=== PATIENT | female | born 1945 | race Caucasian/White ===

== ENCOUNTER 2017-10-23 18:44 | Emergency (ER) | payer MEDICARE, BC ==
[2017-10-23] MEDS ORDERED: Sodium Chloride 0.9% 10 ML Syringe FLUSH PRN (19:15)
[2017-10-23] MEDS ORDERED: Lactated Ringers 1,000 ML IV SCH (19:15)
[2017-10-23] MEDS ORDERED: Diltiazem 25 MG/5 ML SDV IVPUSH ONE (19:15)
--- NOTE | 2017-10-23 19:20 | EDM.PDOC ---
ED HPI GENERAL MEDICAL PROBLEM - General Chief Complaint: Cardiovascular Problem Stated Complaint: POSSIBLE AFIB Time Seen by Provider: 10/23/17 19:14 Source of Information: Reports: Patient, Family, RN Notes Reviewed History Limitations: Reports: No Limitations - History of Present Illness INITIAL COMMENTS - FREE TEXT/NARRATIVE: 72-year-old female presents to the emergency department with a complaint of palpitations, she has a known history of paroxysmal atrial fibrillation 2 he states last event was 2 years ago she was converted with Cardizem she continues to take that medication daily, she states she's had no issues over the last 2 years until today suddenly felt palpitations felt flushed decided reports the emergency department for further evaluation. She denies any chest pain or shortness of breath no nausea able speak in full sentences. Last meal was at 5 PM denies pain Pain Score (Numeric/FACES): 0 - Related Data Allergies Allergy/AdvReac Type Severity Reaction Status Date / Time Penicillins Allergy Hives Verified 10/23/17 19:01 Sulfa (Sulfonamide Allergy Swelling Verified 10/23/17 19:01 Antibiotics) Home Meds: Home Meds Cyclobenzaprine HCl 5 mg PO TID PRN 10/23/17 [History] Diltiazem HCl [Diltiazem ER] 120 mg PO DAILY 10/23/17 [History] Hydrocodone/Acetaminophen [Hydrocodon-Acetaminophn 10-325] 2 tab PO ASDIRECTED 10/23/17 [History] Lisinopril 2.5 mg PO DAILY 10/23/17 [History] Metoprolol Succinate 50 mg PO DAILY 10/23/17 [History] Pantoprazole [ProTONIX] 40 mg PO DAILY 10/23/17 [History] Pravastatin Sodium 10 mg PO BEDTIME 10/23/17 [History] Ranitidine HCl [Zantac] 150 mg PO DAILY 10/23/17 [History] metFORMIN HCl [Metformin HCl] 500 mg PO BID 10/23/17 [History] Past Medical History Cardiovascular History: Reports: Afib, High Cholesterol, Hypertension Endocrine/Metabolic History: Reports: Diabetes, Type II Social & Family History - Tobacco Use Smoking Status *Q: Never Smoker ED ROS GENERAL - Review of Systems Review Of Systems: See Below Constitutional: Reports: No Symptoms HEENT: Reports: No Symptoms Respiratory: Reports: No Symptoms Cardiovascular: Reports: Palpitations GI/Abdominal: Reports: No Symptoms : Reports: No Symptoms Musculoskeletal: Reports: No Symptoms Skin: Reports: No Symptoms Neurological: Reports: No Symptoms ED EXAM, GENERAL - Physical Exam Exam: See Below Free Text/Narrative:: General: Female, able speak in full sentences but anxious, alert and oriented x3 HEENT: head is atraumatic normocephalic, eyes pupils equal round reactive to light, sclera clear no conjunctivitis appreciated. Ears tympanic membranes clear and rdz landmarks and light reflex are present bilaterally canals are clear. Nose no septal deviation, nares are clear, no blood present. Mouth mucosa is moist and pink no erythema or exudate noted in soft palate, tongue is midline uvula is midline, dentition is intact. Neck: Supple no thyromegaly no tracheal deviation. Nodes: Cervical nodes subclavicular nodes nontender no palpable lymphadenopathy noted. Lungs: clear to auscultation bilaterally with symmetrical respirations, no adventitious noise appreciated. CV: Tachycardic rate and rhythm S1 and S2 . Abdomen: Soft, nontender, no palpable masses or organomegaly appreciated, no distention no guarding bowel sounds are present, . Neuro: Cranial nerves II through XII grossly intact Skin: Warm and dry, intact Extremities: No lower extremity edema appreciated, Course - Vital Signs Last Recorded V/S: Last Vital Signs Temp 96.8 F 10/23/17 19:21 Pulse 105 H 10/23/17 20:14 Resp 20 10/23/17 20:14 BP 97/55 L 10/23/17 20:14 Pulse Ox 94 L 10/23/17 20:14 - Orders/Labs/Meds Orders: Active Orders 24 hr Category Date Time Status Cardiac Monitoring [RC] .As Directed Care 10/23/17 19:15 Active EKG Documentation Completion [RC] ASDIRECTED Care 10/23/17 19:15 Active Peripheral IV Care [RC] . DIRECTED Care 10/23/17 19:15 Active Chest 1V Frontal [CR] Stat Exams 10/23/17 19:15 Taken Lactated Ringers [Ringers, Lactated] 1,000 ml Med 10/23/17 19:15 Active IV ASDIRECTED Sodium Chloride 0.9% [Saline Flush] Med 10/23/17 19:15 Active 10 ml FLUSH ASDIRECTED PRN ED Antiarrhythmia Med Reflex [OM.PC] Stat Oth 10/23/17 19:15 Ordered Peripheral IV Insertion Adult [OM.PC] Stat Oth 10/23/17 19:15 Ordered EKG 12 Lead [EK] Stat Ther 10/23/17 19:15 Ordered Medication Orders Lactated Ringer's (Ringers, Lactated) 1,000 mls @ 125 mls/hr IV ASDIRECTED MELVIN Last Admin: 10/23/17 19:47 Dose: 125 mls/hr Sodium Chloride (Saline Flush) 10 ml FLUSH ASDIRECTED PRN PRN Reason: Keep Vein Open Last Admin: 10/23/17 19:47 Dose: 10 ml Labs: Laboratory Tests 10/23/17 10/23/17 10/23/17 Range/Units 19:29 19:29 19:29 WBC 12.6 H (4.5-11.0) K/uL RBC 3.49 (3.30-5.50) M/uL Hgb 10.9 L (12.0-15.0) g/dL Hct 33.1 L (36.0-48.0) % MCV 95 (80-98) fL MCH 31 (27-31) pg MCHC 33 (32-36) % Plt Count 321 (150-400) K/uL Neut % (Auto) 81 H (36-66) % Lymph % (Auto) 9 L (24-44) % Johnson % (Auto) 9 H (2-6) % Eos % (Auto) 1 L (2-4) % Baso % (Auto) 0 (0-1) % Sodium 135 L (140-148) mmol/L Potassium 4.0 (3.6-5.2) mmol/L Chloride 100 (100-108) mmol/L Carbon Dioxide 26 (21-32) mmol/L Anion Gap 13.0 (5.0-14.0) mmol/L BUN 21 H (7-18) mg/dL Creatinine 1.2 H (0.6-1.0) mg/dL Est Cr Clr Drug Dosing 37.13 mL/min Estimated GFR (MDRD) 44 L (>60) Glucose 229 H (74-106) mg/dL Calcium 8.9 (8.5-10.1) mg/dL Magnesium 1.8 (1.8-2.4) mg/dL Total Bilirubin 0.9 (0.2-1.0) mg/dL AST 25 (15-37) U/L ALT 43 (12-78) U/L Alkaline Phosphatase 101 (46-116) U/L CK-MB (CK-2) 1.0 (0-3.6) mg/mL Troponin I < 0.017 (0.000-0.056) ng/mL Total Protein 7.2 (6.4-8.2) g/dL Albumin 3.6 (3.4-5.0) g/dL Globulin 3.6 H (2.3-3.5) g/dL Albumin/Globulin Ratio 1.0 L (1.2-2.2) TSH, Ultra Sensitive 2.550 (0.358-3.740) uIU/mL Meds: Medications Generic Name Dose Route Start Last Admin Trade Name Freq PRN Reason Stop Dose Admin Lactated Ringer's 1,000 mls @ 125 mls/hr 10/23/17 19:15 10/23/17 19:47 Ringers, Lactated IV 125 mls/hr ASDIRECTED MELVIN Administration Sodium Chloride 10 ml 10/23/17 19:15 10/23/17 19:47 Saline Flush FLUSH 10 ml ASDIRECTED PRN Administration Keep Vein Open Discontinued Medications Generic Name Dose Route Start Last Admin Trade Name Freq PRN Reason Stop Dose Admin Diltiazem HCl 20 mg 10/23/17 19:15 Diltiazem IVPUSH 10/23/17 19:16 ONETIME ONE Lorazepam 0.5 mg 10/23/17 19:27 10/23/17 19:39 Ativan IVPUSH 10/23/17 19:28 0.5 mg ONETIME ONE Administration Departure - Departure Time of Disposition: 20:54 Disposition: Home, Self-Care 01 Condition: Good Clinical Impression: Atrial fibrillation with RVR Referrals: PCP,None [Primary Care Provider] - Forms: ED Department Discharge Additional Instructions: Resume your regular medications, recommend starting baby aspirin one tablet once a day, please keep your appointment with your strategic buyer upon return home - My Orders Last 24 Hours: My Active Orders 10/23/17 19:15 Cardiac Monitoring [RC] .As Directed EKG Documentation Completion [RC] ASDIRECTED Peripheral IV Care [RC] . DIRECTED Chest 1V Frontal [CR] Stat Lactated Ringers [Ringers, Lactated] 1,000 ml IV ASDIRECTED Sodium Chloride 0.9% [Saline Flush] 10 ml FLUSH ASDIRECTED PRN ED Antiarrhythmia Med Reflex [OM.PC] Stat Peripheral IV Insertion Adult [OM.PC] Stat EKG 12 Lead [EK] Stat - Assessment/Plan Last 24 Hours: My Active Orders 10/23/17 19:15 Cardiac Monitoring [RC] .As Directed EKG Documentation Completion [RC] ASDIRECTED Peripheral IV Care [RC] . DIRECTED Chest 1V Frontal [CR] Stat Lactated Ringers [Ringers, Lactated] 1,000 ml IV ASDIRECTED Sodium Chloride 0.9% [Saline Flush] 10 ml FLUSH ASDIRECTED PRN ED Antiarrhythmia Med Reflex [OM.PC] Stat Peripheral IV Insertion Adult [OM.PC] Stat EKG 12 Lead [EK] Stat Plan: Assessment Acuity = acute Site and laterality = atrial fibrillation with rapid ventricular response status post spontaneous conversion complicated in a patient with known history of paroxysmal atrial fibrillation, hypertension and diabetes mellitus type 2 Etiology = unclear etiology Manifestations = none Location of injury = Home Lab values = WBC elevated 12.6 consistent leukocytosis, hemoglobin 10.9 consistent normochromic anemia sodium low at 135 consistent hyponatremia creatinine elevated 1.2 consistent with chronic renal failure stage G IIIB glucose elevated to 29 consistent with hyperglycemia troponin is negative TSH normal at 2.5 EKG initially demonstrated atrial fibrillation rapid ventricular rate around 160 to 170 spontaneous conversion a sinus rhythm around 90 chest x- ray I did review films myself I cannot appreciate any acute process, the official read from radiology is pending Plan She had good improvement of all symptoms felt asymptomatic after spontaneous conversion she does have a cardiology appointment upon return home she because her chads score is around 4 puts it up proximally 5% risk of CVA recommended she take a baby aspirin and discuss this with her strategic buyer upon return home she will continue using Cardizem This note was dictated using [employer] voice recognition software please call with any questions on syntax or grammar.
[2017-10-23] MEDS ORDERED: LORazepam 2 MG/ML SDV IVPUSH ONE (19:27)
--- NOTE | 2017-10-24 08:50 | CR ---
CHEST: Portable CLINICAL HISTORY:Chest pain COMPARISON:None FINDINGS: Lungs are clear. Heart and pulmonary vascular are normal. There is a nodular density in th e left infrahilar region. This could be superimposition.. IMPRESSION: No acute cardio pelvic process Nodular density seen in the left the medial infrahilar region. This may be superimposed. Two-view chest recommended when patient's condition allows
== END 2017-10-23 21:19 | disposition home or self-care (01) ==
LOC: JP.ED 18:44
DX: I48.91 Unspecified atrial fibrillation (principal); E78.00 Pure hypercholesterolemia, unspecified; I10 Essential (primary) hypertension; E11.9 Type 2 diabetes mellitus without complications; Z88.0 Allergy status to penicillin; Z88.2 Allergy status to sulfonamides; Z79.84 Long term (current) use of oral hypoglycemic drugs
CPT/HCPCS: 36415; 71045; 80053; 82553; 83735; 84443; 84484; 85025; 93005; 96361; 96374; 99284; J2060; J7050; J7120; 93010